=== PATIENT | female | born 1970 | race Caucasian/White ===

== ENCOUNTER 2018-04-03 10:57 | Emergency (ER) | payer OTHER ==
[~2018-04-03] VITALS: Ht 165.1 cm; Wt 83.5 kg
[~2018-04-03 10:57] MED LIST: AMOXICILLIN875 MG PO; NOHOMEMEDICATIONS; NORCO 5-325 TA1 EACH PO; ORABASE11.9 GM MM; PENICILLIN VK500 MG PO; TRAMADOL 50 MG50 MG PO
[2018-04-03] MEDS ORDERED: PREDNISONE 20 M20 M1 PO (11:15)
[2018-04-03] MEDS ORDERED: VENTOLIN HFA 1818 GM INH (11:15)
[2018-04-03] MEDS ORDERED: ZPAK PO (11:15)
[2018-04-03 11:57] VITALS: BP 162/76
== END 2018-04-03 12:06 | disposition home or self-care (01) ==
LOC: M.ERS 10:57
DX: J40 Bronchitis, not specified as acute or chronic (principal); F17.210 Nicotine dependence, cigarettes, uncomplicated; Z88.5 Allergy status to narcotic agent